=== PATIENT | male | born 1955 | race Caucasian/White ===

== ENCOUNTER 2017-12-09 12:01 | Emergency (ER) | payer MEDICAID ==
[2017-12-09 12:14] VITALS: BP 131/85; BMI 23.7
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
[2017-12-09] MEDS ORDERED: DILAUDID INJ IVP ONE ×2 (12:39→14:58)
[2017-12-09] MEDS ORDERED: DILAUDID INJ ONE ×2 (12:40→14:56)
[2017-12-09 13:07] LABS: BLOOD UREA NITROGEN 18 mg/dL (7-18); CALCIUM 8.8 mg/dL (8.5-10.1); CARBON DIOXIDE 28.8 mmol/L (21-32); CHLORIDE 104 mmol/L (98-107); CREATININE 0.83 mg/dL (0.70-1.30); SODIUM 138 mmol/L (136-145); eGFR BLACK RACES > 60 (>60); eGFR NON BLACK RACES > 60 (>60)
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
== END 2017-12-09 15:30 | disposition home or self-care (01) ==
LOC: ER 12:20
DX: N20.0 Calculus of kidney (principal); R91.1 Solitary pulmonary nodule; S27.329A Contusion of lung, unspecified, initial encounter; S22.21XA Fracture of manubrium, initial encounter for closed fracture; S30.1XXA Contusion of abdominal wall, initial encounter; M79.81 Nontraumatic hematoma of soft tissue; J42 Unspecified chronic bronchitis; W22.8XXA Striking against or struck by other objects, initial encounter; R42 Dizziness and giddiness
CPT/HCPCS: 36415; 70486; 71260; 74177; 80048; 96365; 96374; 96375; 99283; A4222; J1170